=== PATIENT | male | born 1940 | race Caucasian/White ===

== ENCOUNTER 2020-11-11 11:00 | Observation (INO) | payer MEDICARE ==
[~2020-11-11 11:00] MED LIST: ASPI81TA40 PO; ATOR10 PO; DUTA0.5C37 PO; LISI1TAB53 PO; LORA10TA7 PO
[2020-11-11 11:53] LABS: BASOPHILS % (AUTO) 0.5 % (0.0-5.0); EOSINOPHILS % (AUTO) 2.8 % (0.0-8.0); HEMATOCRIT 45.2 % (42-54); LYMPHOCYTES % (AUTO) 38.2 % (21.0-51.0); MEAN CORPUSCULAR HEMOGLOBIN 29.9 pg (27.0-33.0); MEAN CORPUSCULAR HGB CONC 34.1 g/dL (32.0-36.0); MEAN CORPUSCULAR VOLUME 87.8 fL (79-99); MONOCYTES % (AUTO) 9.5 % (3.0-13.0); NEUTROPHILS % (AUTO) 48.8 % (40.0-77.0); PLATELET COUNT (AUTO) 203 K/uL (130-400); RED BLOOD CELL COUNT(AUTO) 5.15 MIL/uL (4.50-6.20); RED CELL DISTRIBUTION WIDTH 13.7 % (11.0-15.5); WHITE BLOOD COUNT (AUTO) 8.9 K/uL (4.8-10.8)
[2020-11-11 11:55] LABS: APPEARANCE,URINE Clear (CLEAR); BILIRUBIN,URINE Negative (NEGATIVE); COLOR,URINE Yellow (YELLOW); GLUCOSE, URINE (UA) Negative (NEGATIVE); KETONES,URINE Trace mg/dL (NEGATIVE); LEUKOCYTE ESTERASE ,URINE Negative (NEGATIVE); NITRATE,URINE Negative (NEGATIVE); OCCULT BLOOD,URINE Negative (NEGATIVE); PROTEIN,URINE Negative (NEGATIVE)
[2020-11-11 12:06] LABS: CREATININE 1.1 mg/dL (0.5-1.5); POTASSIUM 3.9 mmol/L (3.5-5.1)
[2020-11-11 12:11] LABS: ALBUMIN 4.3 g/dL (3.5-5.0); BILIRUBIN,TOTAL 1.4 mg/dL (0.2-1.0); TOTAL PROTEIN, SERUM 8.3 g/dL (6.0-8.3)
[2020-11-11] MEDS ORDERED: ACETAMINOPHEN 500 MG TABLET ONE (12:51)
[2020-11-11] MEDS ORDERED: PROCHLORPERAZINE 10MG/2ML INJ ONE (14:30)
[2020-11-11] MEDS ORDERED: DiphenhydrAMINE HCL 50 MG/ML VIAL ONE (14:30)
[2020-11-11] MEDS ORDERED: IOHEXOL-350 75 ML VIAL IV ONE (16:55)
[2020-11-11] MEDS ORDERED: MECLIZINE HCL 25 MG TABLET ONE ×2 (17:11→17:21)
[2020-11-11] MEDS ORDERED: ACETAMINOPHEN 325 MG TAB PO PRN ×2 (23:30)
[2020-11-11] MEDS ORDERED: ONDANSETRON 4MG INJ IV PRN (23:30)
[2020-11-11] MEDS ORDERED: ATORVASTATIN 20 MG TABLET PO SCH (23:30)
[2020-11-11] MEDS ORDERED: 0.9%NACL 1000ML 1,000 ML IV SCH (23:30)
[2020-11-12] MEDS ORDERED: 0.9%NACL 1000ML 1,000 ML IV ONE ×2 (00:03→09:49)
[2020-11-12 01:29] LABS: HEMOGLOBIN A1C 5.9 % (4.0-6.0)
[2020-11-12 07:12] LABS: CHOLESTEROL 154 mg/dL (<200); HDL CHOLESTEROL 31 mg/dL (29-71); LDL DIRECT 93 mg/dL (0-99); TRIGLYCERIDES 161 mg/dL (30-200)
[2020-11-12] MEDS ORDERED: GADODIAMIDE 10 MMOL/20 ML VIAL IV ONE (08:03)
[2020-11-12] MEDS ORDERED: FLUTICASONE PROPIONATE 50MCG/SPRAY 16 GM BOTTLE EN SCH (09:00)
[2020-11-12] MEDS ORDERED: LEVOFLOXACIN 500 MG TABLET PO SCH (09:00)
[2020-11-12] MEDS ORDERED: FAMOTIDINE 20MG VIAL IV SCH (09:00)
[2020-11-12] MEDS ORDERED: ASPIRIN 81MG CHEW TAB PO SCH (09:00)
[2020-11-12] MEDS ORDERED: LISINOPRIL 20 MG TABLET PO SCH (09:00)
[2020-11-12] MEDS ORDERED: HYDROCHLOROTHIAZIDE 25 MG TABLET PO SCH (09:00)
[2020-11-12] MEDS ORDERED: CLOPIDOGREL 75MG TAB PO SCH (09:00)
[2020-11-12] MEDS ORDERED: ASPIRIN 81MG CHEW TAB ONE (09:45)
[2020-11-12] MEDS ORDERED: HYDROCHLOROTHIAZIDE 25 MG TABLET ONE (09:46)
[2020-11-12] MEDS ORDERED: LEVOFLOXACIN 500 MG TABLET ONE (09:46)
[2020-11-12] MEDS ORDERED: CLOPIDOGREL 75MG TAB ONE (09:46)
[2020-11-12] MEDS ORDERED: LISINOPRIL 20 MG TABLET ONE (09:47)
[2020-11-12] MEDS ORDERED: FAMOTIDINE 20MG VIAL IV ONE (09:47)
[2020-11-12] MEDS ORDERED: ACETAMINOPHEN 325 MG TAB ONE (18:11)
[2020-11-12] MEDS ORDERED: ATORVASTATIN 10 MG TABLET PO SCH (21:00)
== END 2020-11-12 17:55 | disposition left against medical advice (07) ==
LOC: EDH 11:00 → EDHIP 23:26
PROVIDERS: ADMIT Internal Medicine; ATTEND Internal Medicine
DX: H66.92 Otitis media, unspecified, left ear (principal); Z20.822 Contact with and (suspected) exposure to COVID-19; R42 Dizziness and giddiness; I10 Essential (primary) hypertension; E78.5 Hyperlipidemia, unspecified; N40.0 Benign prostatic hyperplasia without lower urinary tract symptoms; R51.9 Headache, unspecified; R47.89 Other speech disturbances; Z87.891 Personal history of nicotine dependence; Z79.02 Long term (current) use of antithrombotics/antiplatelets; Z79.82 Long term (current) use of aspirin; Z79.899 Other long term (current) drug therapy; Z88.0 Allergy status to penicillin
CPT/HCPCS: 36415 ×2; 70450; 70496; 70498; 70553; 71045; 80053; 80061; 81003; 82550; 83036; 84145; 84443; 84484; 85025; 87426; 92522; 92610; 93005; 99285; A9579; G0378 ×18; J0780; J1200; J3490; J7030 ×2; Q9967; U0003; 99291